=== PATIENT | female | born 1985 | race Caucasian/White ===

== ENCOUNTER 2017-10-07 20:44 | Emergency (ER) | payer OTHER, MEDICAID ==
[~2017-10-07] VITALS: Ht 170.2 cm; Wt 60.0 kg
[2017-10-07 20:45] VITALS: BP 128/81; PULSE 68; RESP 16; TEMP 98; O2SAT 98
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
== END 2017-10-07 22:56 | disposition home or self-care (01) ==
LOC: NEPD 20:44
DX: S50.12XA Contusion of left forearm, initial encounter (principal); V03.90XA Pedestrian on foot injured in collision with car, pick-up truck or van, unspecified whether traffic or nontraffic accident, initial encounter; Y93.01 Activity, walking, marching and hiking; Y92.410 Unspecified street and highway as the place of occurrence of the external cause
CPT/HCPCS: 99281